=== PATIENT | female | born 1990 | race Caucasian/White ===

== ENCOUNTER → 2023-06-15 | Outpatient (CLI) | payer BC | END | disposition home or self-care (01) | LOC: LABWHC1 07:09 | PROVIDERS: ATTEND Obstetrics & Gynecology Reproductive Endocrinology | DX: N97.8 Female infertility of other origin (principal) | CPT/HCPCS: 36415; 84144; 84702 ==

== ENCOUNTER → 2023-07-01 | Outpatient (CLI) | payer BC | END | disposition home or self-care (01) | LOC: LABWHC1 11:07 | PROVIDERS: ATTEND Obstetrics & Gynecology Reproductive Endocrinology | DX: N97.8 Female infertility of other origin (principal) | CPT/HCPCS: 36415; 84144 ==

== ENCOUNTER → 2023-07-14 | Outpatient (CLI) | payer BC | END | disposition home or self-care (01) | LOC: LABWHC1 07:27 | PROVIDERS: ATTEND Obstetrics & Gynecology Reproductive Endocrinology | DX: Z32.00 Encounter for pregnancy test, result unknown (principal) | CPT/HCPCS: 36415; 84144; 84702 ==

== ENCOUNTER → 2023-07-21 | Outpatient (CLI) | payer BC | END | disposition home or self-care (01) | LOC: LABWHC1 07:05 | PROVIDERS: ATTEND Obstetrics & Gynecology Reproductive Endocrinology | DX: N97.8 Female infertility of other origin (principal) | CPT/HCPCS: 36415; 82672; 84144 ==

== ENCOUNTER 2024-09-18 06:48 | Inpatient (IN) | payer BC ==
[2024-09-18] MEDS ORDERED: TERBUTALINE 1 MG/ML VIAL SQ PRN (07:36)
[2024-09-18] MEDS ORDERED: miSOPROStoL 200 MCG TAB RECTAL PRN (07:36)
[2024-09-18] MEDS ORDERED: METHYLERGONOVINE 0.2 MG/ML 1 ML AMP IM PRN (07:36)
[2024-09-18] MEDS ORDERED: CARBOPROST TROMETHAMINE 250 MCG/ML 1 ML AMP IM PRN (07:36)
[2024-09-18] MEDS ORDERED: LIDOCAINE 0.5% (PF) 5 MG/ML (50 ML SDV) SQ PRN (07:36)
[2024-09-18] MEDS ORDERED: miSOPROStoL 200 MCG TAB PO PRN (07:36)
[2024-09-18] MEDS ORDERED: TRANEXAMIC 1,000 MG/100ML-NACL 1,000 MG in EMPTY BAG 1 BAG IV PRN (07:36)
[2024-09-18] MEDS ORDERED: OXYTOCIN 10 UNIT/ML 1 ML VIAL IM PRN (07:36)
[2024-09-18] MEDS: LACTATED RINGERS 1,000 ML IV SCH (08:00)
[2024-09-18 08:05] LABS: Basophils % (A) 0 %; Eosinophils # (A) 0.1 k/uL (0-0.7); Eosinophils % (A) 1 %; HCT 36.6 % (34.0-46.0); HGB 12.5 gm/dL (11.4-16.0); Lymphocytes # (A) 2.1 k/uL (1.0-4.8); Lymphocytes % (A) 25 %; MCH 30.5 pg (25.0-35.0); MCV 89.7 fL (80.0-100.0); Mean Platelet Volume 10.3; Monocytes # (A) 0.5 k/uL (0-1.0); Monocytes % (A) 6 %; Neutrophils # (A) 5.7 k/uL (1.3-7.7); Neutrophils % (A) 66 %; Platelet Count 181 k/uL (150-450); RBC 4.08 m/uL (3.80-5.40); RDW 12.2 % (11.5-15.5); WBC 8.6 k/uL (3.8-10.6)
[2024-09-18] MEDS: PENICILLIN G POTASSIUM 5,000,000 UNIT in DEXTROSE 5% IN WATER 100 ML IVPB STA (08:20)
[2024-09-18] MEDS: OXYTOCIN 30 UNITS/500 ML NS 30 UNIT in SALINE 1 500ML.BAG IV SCH (08:41)
[2024-09-18] MEDS ORDERED: NALBUPHINE 10 MG/ML (10 ML MDV) IV PRN (08:57)
--- NOTE | 2024-09-18 08:57 | P.HPOB ---
History of Present Illness H&P Date: 09/18/24 Chief Complaint: SROM Ms. Summers is a 34 year old at 39 weeks and 6 days with EDC of 09/19/2024 by 8 week US who presents after experiencing SROM at 200 this morning revealing clear amniotic fluid. She is asael irregularly at this time and cervix is still closed. has been essentially uncomplicated. She has been on Levothyroxine per RMA, who she was seeing for infertility when she spontaneously conceived. The fetus is estimated in the 67%ile based on a 32 week US. work-up: blood type A positive, antibody screen negative, rubella non- immune, VDRL non-reactive, HBsAg negative, HIV negative, HCV Ab non-reactive, gonorrhea negative, chlamydia negative, 1 hour GTT wnl, s/p TDap, GBS positive. Medications and Allergies Home Medications Medication Instructions Recorded Confirmed Type Aspirin [Adult Low Dose Aspirin EC] 81 mg PO DAILY 09/18/24 09/18/24 History Levothyroxine Sodium 25 mcg PO DAILY 09/18/24 09/18/24 History Vit No.179/Iron/Folic 1 each PO DAILY 09/18/24 09/18/24 History [ Tablet] Allergies Allergy/AdvReac Type Severity Reaction Status Date / Time No Known Allergies Allergy Verified 09/18/24 07:09 Exam Intake and Output 09/17/24 09/18/24 09/18/24 22:59 06:59 14:59 Other: Weight 71.214 kg Focused physical exam is performed. This is a healthy-appearing in no apparent distress. Breathing is non-labored. Abdomen is gravid and non-tender. Cervical exam is closed/80% effaced/-3 station. Dilapan-S rods are inserted x5. Extremities non-tender and non-edematous. heart tones are Category I and tocometer is graphing irregular contractions. Results Result Diagrams: 09/18/24 07:51 Assessment and Plan Assessment: 34 year old at 39 weeks and 6 days with SROM at 0200 for clear fluid, admitted for induction of labor Plan: Admit, clear liquid diet, pitocin per protocol, continuous EFM and tocometer, Dilapan-S at this time x6-12 hours, IV nubain prn, PCN G for GBS ppx.
--- NOTE | 2024-09-18 08:59 | P.PCN ---
Date of Procedure: 09/18/24 Preoperative Diagnosis: Dilapan-S insertion Postoperative Diagnosis: Same Procedure(s) Performed: Dilapan-S insertion Implants: Dilapan-S Anesthesia: none Surgeon: Angie Serrano Estimated Blood Loss (ml): 5 IV fluids (ml): 0 Urine output (ml): 0 Pathology: none sent Condition: stable Disposition: floor Indications for Procedure: Induction of labor for 34 year old at 39 weks and 6 days with SROM today and closed cervix Operative Findings: 5 rods placed satisfactorily Description of Procedure: The risks (including bleeding, infection, ruptured membranes, onset of labor, cervical tears or Dilapan-S breaking) and benefits of the procedure were discussed with the patient. Written informed consent was obtained. A sterile lighted speculum was placed into the vagina and the cervix was visualized. The cervix and vagina was cleaned with antiseptic solution. A forcep was used to grasp the cervical lip to straighten the cervical canal another ring forcep was used to grasp the handle of the Dilapan-S arlette and insert the arlette through the external cervical os gradually and without force. This was repeated until adequate Dilapan-S rods were inserted. A total number of 5 rods were inserted. At the conclusion of the procedure there was no vaginal bleeding. The speculum and instruments were removed.
[2024-09-18] MEDS: PENICILLIN G POTASSIUM 2,500,000 UNIT in DEXTROSE 5% IN WATER 100 ML IVPB SCH (12:00)
[2024-09-18 12:52] LABS: ALT 15 U/L (4-34); AST 23 U/L (14-36); African American GFR (CKD) >90 (>60 ml/min/1.73 sqM); Blood Urea Nitrogen 13 mg/dL (7-17); LDH 234 U/L (120-246); Non-African American GFR(CKD) >90 (>60 ml/min/1.73 sqM); Uric Acid 3.7 mg/dL (3.7-7.4)
[2024-09-18] MEDS ORDERED: fentaNYL (PF) 50 MCG/ML 5 ML AMP ONE (13:05)
[2024-09-18] MEDS ORDERED: SODIUM CHLORIDE 0.9% 250 ML BAG ONE (13:05)
[2024-09-18] MEDS ORDERED: ROPIVACAINE 5 MG/ML 30 ML VIAL ONE (13:05)
[2024-09-18] MEDS: BENZOCAINE/MENTHOL SPRAY 1 GM/SPRAY AEROSOL TOPICAL PRN (19:20)
--- NOTE | 2024-09-18 19:21 | P.PROBDLV ---
Vaginal Delivery Note - . Vaginal Delivery Note: DATE OF SERVICE: 09/18/2024 PROCEDURE: Normal Vaginal Delivery ATTENDING: Dr. Angie Serrano MD ESTIMATED BLOOD LOSS: 200 mL FINDINGS: VMI, Apgars 8/9. Weight 7 pounds 9 ounces (3425 grams) PROCEDURE: Ms. Summers is a 34 year old at 39 weeks and 6 days presenting to labor and delivery for SROM at 0200 revealing clear amniotic fluid. The has been essentially uncomplicated. For further details, please review the admitting H&P. Pitocin was titrated per protocol. Dilapan-S were placed. After approximately 4 hours, the patient requested an epidural. She was 4 centimeter dilated at this time and the Dilapan-S rods were removed. She received epidural anesthesia. The patient was completely dilated at 1622. She did labor down for some time because she had no sensation or urge to push. The epidural was discontinued. She did begin pushing and pushed effectively with Category II FHTs. A viable male infant was delivered at 1907. The infant was placed on the maternal abdomen and bulb suctioned. The infant was noted to be spontaneously crying. Cord was clamped and cut after a 60-second delay. The was handed off to the pediatric team. Placenta was delivered whole with gentle cord traction. Oxytocin was started to facilitate uterine tone. Uterine fundus was found to be firm and below the umbilicus upon fundal massage. Thorough examination of the cervix, vagina, periurethral area, and perineum revealed no lacerations. The patient is stable and allowed to begin the bonding process.
[2024-09-18] MEDS ORDERED: SIMETHICONE 80 MG CHEWABLE PO PRN (19:22)
[2024-09-18] MEDS ORDERED: LANOLIN CREAM 1 GM TUBE TOPICAL PRN (19:22)
[2024-09-18] MEDS ORDERED: diphenhydrAMINE 50 MG CAP PO PRN (19:22)
[2024-09-18] MEDS ORDERED: HYDROCORTISONE 2.5% RECTAL CREAM 30 GM TUBE RECTAL PRN (19:22)
[2024-09-18] MEDS ORDERED: diphenhydrAMINE 50 MG/ML 1 ML VIAL IVP PRN ×2 (19:22)
[2024-09-18] MEDS ORDERED: diphenhydrAMINE 25 MG CAP PO PRN (19:22)
[2024-09-18] MEDS ORDERED: ZOLPIDEM 5 MG TAB PO PRN (19:22)
[2024-09-18] MEDS: IBUPROFEN 800 MG TAB PO SCH (20:09)
[2024-09-18] MEDS: SENNOSIDES-DOCUSATE SODIUM 1 EACH TAB PO SCH (21:17)
[2024-09-18 22:13] VITALS: RESP 16
[2024-09-19] MEDS: ACETAMINOPHEN TAB 500 MG TAB PO SCH (02:31)
[2024-09-19 05:54] LABS: Basophils # (A) 0.1 k/uL (0-0.2); Basophils % (A) 0 %; Eosinophils # (A) 0.2 k/uL (0-0.7); Eosinophils % (A) 1 %; HCT 35.2 % (34.0-46.0); HGB 11.9 gm/dL (11.4-16.0); Lymphocytes # (A) 2.1 k/uL (1.0-4.8); Lymphocytes % (A) 14 %; MCH 30.7 pg (25.0-35.0); MCHC 33.8 g/dL (31.0-37.0); MCV 90.9 fL (80.0-100.0); Mean Platelet Volume 10.4; Monocytes # (A) 0.6 k/uL (0-1.0); Monocytes % (A) 4 %; Neutrophils % (A) 80 %; Platelet Count 186 k/uL (150-450); RBC 3.87 m/uL (3.80-5.40); RDW 12.3 % (11.5-15.5)
--- NOTE | 2024-09-19 08:35 | P.DS ---
Providers Date of admission: 09/18/24 07:08 Expected date of discharge: 09/19/24 Attending physician: Angie Serrano MD Primary care physician: Stated None Hospital Course: 34 year old now PPD#1 s/p after SROM followed by Dilapan-S and oxytocin induction. The patient is doing well this morning and had no acute events overnight. She has no complaints this morning. She reports minimal lochia, passing flatus, voiding without difficulty, ambulating, and eating/drinking without nausea or vomiting. doing well at bedside, s/p circumcision. She denies chest pain, shortness of breathing, fevers, or chills overnight. She denies pain or swelling in the legs. restrictions are reviewed with the patient including pelvic rest for 6 weeks. The patient is encouraged to call the office if she experiences any heavy bleeding, foul- smelling discharge, breast complaints, or any if she has any other concerns. She will follow up in the office with in 6 weeks for exam. All questions are answered. Assessment: 34 year old PPD#1 s/p Patient Condition at Discharge: Good Plan - Discharge Summary New Discharge Prescriptions: No Action Levothyroxine Sodium 25 mcg PO DAILY Aspirin [Adult Low Dose Aspirin EC] 81 mg PO DAILY Vit No.179/Iron/Folic [ Tablet] 1 each PO DAILY Discharge Medication List Aspirin [Adult Low Dose Aspirin EC] 81 mg PO DAILY 09/18/24 [History] Levothyroxine Sodium 25 mcg PO DAILY 09/18/24 [History] Vit No.179/Iron/Folic [ Tablet] 1 each PO DAILY 09/18/24 [History] Follow up Appointment(s)/Referral(s): Angie Serrano MD [STAFF PHYSICIAN] - 6 Weeks Activity/Diet/Wound Care/Special Instructions: Instructions 1. Do not begin any exercise program for 3 weeks. 2. Do not resume sexual relations for 6 weeks or longer if uncomfortable. 3. You may take tub baths or showers at any time. 4. You may use tampons if desired after 6 weeks. 5. Keep any areas repaired with stitches clean and dry. 6. If you are not nursing, wear a good fitting, supportive bra during the day and limit fluid intake for at least 1 week to prevent breast engorgement. 7. Call the office, , within the next week to make appointment for your 6 week checkup if it has not already been made. 8. Report any of the following occurrences to the doctor promptly: a. Heavy, excessive bleeding b. Chills, fever c. Burning or frequency of urination d. Pain or redness and breasts if nursing e. Increasing pain or swelling of vulva (stitches). In addition to the above instructions, the following additional should be followed: 1. No heavy lifting or straining (exercising) until after 6 week checkup. 2. Keep abdominal incision clean and dry: You may wear a dressing if more comfortable. 3. Make office appointment for 2 weeks after delivery date. Discharge Disposition: HOME SELF-CARE
[2024-09-19] MEDS: MEASLES-MUMPS-RUBELLA VACC/PF 12,500 UNIT/0.5 ML VIAL SQ ONE (14:33)
[2024-09-19 16:30] VITALS: BP 127/80; PULSE 66; TEMP 97.5
== END 2024-09-19 20:03 | disposition home or self-care (01) | DRG 807 ==
LOC: FBPOP 06:48 → 4FBP 07:08
PROVIDERS: ADMIT Obstetrics & Gynecology; ATTEND Obstetrics & Gynecology
PROC: 10E0XZZ Delivery of Products of Conception, External Approach (ICD-10-PCS; principal; 2024-09-18)
PROC: 3E0P7VZ Introduction of Hormone into Female Reproductive, Via Natural or Artificial Opening (ICD-10-PCS; 2024-09-18)
PROC: 3E033VJ Introduction of Other Hormone into Peripheral Vein, Percutaneous Approach (ICD-10-PCS; 2024-09-18)
DX: O80 Encounter for full-term uncomplicated delivery (principal); Z37.0 Single live birth; Z3A.39 39 weeks gestation of pregnancy; Z79.82 Long term (current) use of aspirin; Z79.890 Hormone replacement therapy
CPT/HCPCS: 59200; 82565; 83615; 84450; 84460; 84520; 84550; 85025; 86850; 86900; 86901; 90707